=== PATIENT | female | born 1955 | race Hispanic/Latino ===

== ENCOUNTER 2021-06-08 06:41 | Day surgery (SDC) | payer MEDICARE ==
[2021-06-08] MEDS ORDERED: ASPIRIN EC 325 MG TAB PO NR (07:12)
[2021-06-08 07:38] LABS: Basophils % (Auto) 0.9 % (0.0-1.8); Eosinophils # (Auto) 0.1 K/mm3 (0.0-0.4); Eosinophils % (Auto) 2.3 % (0.0-4.3); Hematocrit 34.3 % (30.3-42.9); Hemoglobin 11.6 gm/dl (10.1-14.3); Lymphocytes # (Auto) 1.4 K/mm3 (1.2-5.4); Lymphocytes % (Auto) 27.7 % (13.4-35.0); Mean Corpuscular HGB Conc 34 % (30-34); Mean Corpuscular Volume 111 fl (79-97); Monocytes # (Auto) 0.5 K/mm3 (0.0-0.8); Monocytes % (Auto) 9.4 % (0.0-7.3); Platelet Count 198 K/mm3 (140-440); Red Blood Count 3.09 M/mm3 (3.65-5.03); Red Cell Distribution Width 14.5 % (13.2-15.2)
[2021-06-08 07:51] LABS: Calcium 10.1 mg/dL (8.4-10.2)
[2021-06-08 07:55] LABS: INR 0.89 (0.87-1.13)
[2021-06-08] MEDS ORDERED: HEPARIN/NS 5000 UNIT/500ML 1,000 ML IR ONE (07:55)
[2021-06-08] MEDS ORDERED: HEPARIN 10,000 UNITS/10 ML VIAL ONE (07:55)
[2021-06-08 07:56] LABS: Partial Thromboplastin Time 35.3 Sec. (24.2-36.6)
[2021-06-08] MEDS: SODIUM CHLORIDE 0.9% 500 ML 500 ML IV SCH ×2 (08:17→08:33)
[2021-06-08] MEDS: fentaNYL 100 MCG/2 ML INJ ONE ×2 (08:32→08:41)
[2021-06-08] MEDS: MIDAZOLAM 2 MG/2 ML INJ ONE ×2 (08:32→08:41)
[2021-06-08] MEDS: LIDOCAINE (1%) 10 MG/1 ML VIAL 20 ML MDV ONE ×2 (08:32→08:36)
--- NOTE | 2021-06-08 10:07 | Cardiac Catherization Report ---
DATE OF PROCEDURE: 06/08/2021 CARDIAC CATHETERIZATION REFERRING PHYSICIAN: Eduard Dolan MD INDICATIONS FOR PROCEDURE: The patient is an exceedingly pleasant 66-year-old female with recurrent chest pain, abnormal nuclear stress test, referred for left heart catheterization. Risks, benefits, potential alternatives explained at length prior to obtaining informed consent. PROCEDURE IN DETAIL: The patient was brought to laboratory tester in postabsorptive state, prepped and draped in sterile fashion. She has had a cancer, has a port in the right arm and will need a groin approach. A 6 mL of 2% lidocaine used to anesthetize the right groin. A standard 6-Latvian sheath placed in right common femoral artery via modified Seldinger technique. All exchanges performed to exchange a J-tip guidewire. JL3.5 catheter was used to engage the left main. No dampening or ventricularization. Cineangiography performed in all projections. JR4 catheter used to cross the aortic valve under fluoroscopic guidance. Left ventriculography performed in 30-degree BERGMAN and 30-degree UGANDAN projections via hand injections, catheter flushed. Manual pullback performed with continuous pressure monitoring. Catheter was used to engage right coronary. No dampening or ventricularization. Cineangiography performed in multiple projections. DATA: Aortic pressure is 140/70, LV pressure is 140, LVEDP of 20 mmHg. Left ventriculography reveals normal systolic performance, estimated ejection fraction of 50-55%. No evidence of aortic stenosis. CORONARY ANATOMY: This is a right dominant system. Right coronary is a moderate sized vessel, courses AV groove. No significant disease, distally bifurcates into posterior and posterolateral branches. Left main without significant disease, bifurcates into left anterior descending, left circumflex. Left circumflex is a moderate sized vessel, courses AV groove, no significant disease. LAD is a moderate-sized vessel, courses anterior intergroove, wraps around the apex, 100% occluded just after the takeoff of large diagonal, appears to be left to left collaterals filling the distal LAD. At this point, we turned our attention to PCI. EBU 3.75 guide used to engage left main without difficulty, used heparin. Abnormal ACT confirmed. We used multiple wires to cross the lesion, however, never able to cross the distal cap. I suspect this is a true chronic total, will need more aggressive approach. We will do this electively at [place]. No complications on final angiogram. The patient has no symptoms throughout. No EKG changes. The patient remained in sinus rhythm throughout. I directly supervised the administration of moderate sedation with fentanyl and Versed from 8:30 a.m. to 9:15 a.m. No immediate complications identified. CONCLUSIONS: 1. Severe single vessel coronary artery disease with 100% chronic total occlusion of the LAD with left to left collaterals, unsuccessful attempt at PCI, we were unable to cross the distal cap. 2. Preserved LV systolic performance. 3. No evidence of aortic stenosis. 4. Normal LVEDP. The patient is clinically stable. Standard right groin care, post sheath once less than 170. Discussed with [facility], we will refer the patient for elective MOTORCYCLE TESTER of LAD later this week. Again, this patient is clinically stable, chest pain free. Results of procedure were explained at length to the patient and family. TID: [id number] RECEIPT: [id number] JANN/RENU/SAEID
[2021-06-08] MEDS ORDERED: traMADol 50 MG TAB PO PRN (11:53)
[2021-06-08] MEDS ORDERED: HYDROcodone/ACETAMINOPHEN 5-325 MG TAB PO PRN (11:53)
--- NOTE | 2021-06-08 12:01 | Short Stay Summary ---
Short Stay Documentation Date of service: 06/08/21 - History H&P: obtained from office - Allergies and Medications Current Medications: Allergies codeine Allergy (Verified 06/08/21 07:12) Vomiting Corticosteroids (Glucocorticoids) Allergy (Verified 06/08/21 07:18) suicide feelings latex Allergy (Verified 06/08/21 07:18) Rash Sulfa (Sulfonamide Antibiotics) Allergy (Verified 06/08/21 07:18) Hives Home Medications Medication Instructions Recorded Confirmed Last Taken Type Apixaban [Eliquis] 5 mg PO BID 06/08/21 06/08/21 06/05/21 History Rucaparib Camsylate [Rubraca] 300 tab PO BID 06/08/21 06/08/21 06/07/21 History carvediloL [Coreg] 6.25 mg PO BID 06/08/21 06/08/21 06/08/21 History dilTIAZem [CarDIZEM] 60 mg PO BID 06/08/21 06/08/21 06/07/21 History Active Medications Hydrocodone Bitart/Acetaminophen (Hydrocodone/Acetaminophen 5-325 Mg Tab) 1 each PO Q4H PRN PRN Reason: Pain, Moderate (4-6) Sodium Chloride (Nacl 0.9% 500 Ml) 500 mls @ 50 mls/hr IV DIRECT KRUPA Stop: 06/08/21 17:59 Last Admin: 06/08/21 08:33 Dose: 50 mls/hr Tramadol HCl (Tramadol 50 Mg Tab) 50 mg PO Q4H PRN PRN Reason: Pain, Mild (1-3) - Physical exam Integumentary: other - Brief post op/procedure progress note Date of procedure: 06/08/21 Pre-op diagnosis: chest pain/abnormal stress Post-op diagnosis: other (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 Patient tolerated procedure well with no complications. 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 Patient will follow-up with [facility] later this week for further intervention. Plan of care discussed with patient who verbalized understanding and acknowledgment - Disposition Condition at discharge: Good Disposition: 01 HOME / SELF CARE / HOMELESS Short Stay Discharge Plan Activity: advance as tolerated Diet: low fat, low cholesterol, low salt Wound: keep clean and dry, per your surgeon's advice Follow up with: ONESIMO CODY PA [Primary Care Provider] - 7 Days JOHNATHON MCGILL MD [Staff Physician] - 06/28/21 1:00 pm (Patient has a follow up with DR Mcgill on 06/28/2021 at 1pm in our [place] location. ) [facility]
[2021-06-08] MEDS ORDERED: ACETAMINOPHEN 325 MG TAB PO NR (12:41)
[2021-06-08] MEDS ORDERED: ACETAMINOPHEN 325 MG TAB ONE (12:44)
[2021-06-08] MEDS ORDERED: ATROPINE 0.1% (1 MG/10 ML) CARDIAC SYRINGE ONE (13:07)
[2021-06-08 16:10] VITALS: BP 144/67
--- NOTE | 2021-06-09 11:22 | Electrocardiograph Report ---
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
== END 2021-06-08 15:10 | disposition home or self-care (01) ==
LOC: CATHLABREC 06:41
PROVIDERS: ATTEND Internal Medicine
DX: R07.89 Other chest pain (principal); R94.39 Abnormal result of other cardiovascular function study; I10 Essential (primary) hypertension; J45.909 Unspecified asthma, uncomplicated; D64.9 Anemia, unspecified; Z85.43 Personal history of malignant neoplasm of ovary; Z88.2 Allergy status to sulfonamides; Z88.5 Allergy status to narcotic agent; Z91.040 Latex allergy status; Z88.8 Allergy status to other drugs, medicaments and biological substances; Z90.49 Acquired absence of other specified parts of digestive tract; Z90.710 Acquired absence of both cervix and uterus
CPT/HCPCS: 36415; 80048; 85025; 85610; 85730; 92920; 93005; 93458; 99156; 99157; C1769; C1887; C1894; J1642; J1644; J2250; J3010; J3490; J7040; J0461; Q9967